=== PATIENT | male | born 1965 | race Two or more races ===

== ENCOUNTER 2018-06-02 11:55 | Inpatient (IN) | payer OTHER ==
[~2018-06-02] VITALS: Ht 175.3 cm; Wt 78.4 kg
[2018-06-02] VITALS (11 sets, daily range): BP systolic 90–129; BP diastolic 59–71
[2018-06-02] MEDS ORDERED: PANTOPRAZOLE 40 MG/10 ML VIAL IV STA (13:04)
[2018-06-02 14:44] LABS: Basophils # (auto) 0 uL; Eosinophils # (auto) 0 uL; Eosinophils % (auto) 0.1 % (0.0-7.0); Lymphocytes # (auto) 0.3 uL; Monocytes # (auto) 0.5 uL
[2018-06-02 14:46] LABS: Basophils % (auto) 0.2 % (0.0-2.0); Hematocrit 20.7 % (41.0-53.0); Mean Corpuscular Hemoglobin 34.2 pg (28.0-32.0); Mean Corpuscular Hgb Conc. 33.5 g/dL (32.0-36.0); Mean Corpuscular Volume 102.1 fL (80.0-100.0); Monocytes % (auto) 8.7 % (0.0-12.0); Neutrophils # (auto) 4.9 uL; Platelet Count (auto) 162 10^3/uL (140-450); Red Blood Cells 2.03 10^6/uL (4.5-5.90); White Blood Cell 5.7 10^3/uL (4.4-10.8)
[2018-06-02 14:49] LABS: Red Cell Distribution Width 22.2 % (11.8-14.3)
[2018-06-02 14:56] LABS: INR 1.18 (0.9-1.15); Partial Thromboplastin Time 26.1 sec (23.78-33.04); Prothrombin Time 12.5 sec (9.27-12.13)
[2018-06-02 14:58] LABS: Hemoglobin 6.9 g/dL (13.5-17.5)
[2018-06-02 15:11] LABS: Alanine Aminotransferase 25 U/L (16-61); Albumin 1.6 g/dL (3.4-5.0); Anion Gap 11 (5-15); Aspartate Aminotransferase 51 U/L (15-37); BUN/Creatinine Ratio 19.4; Blood Alcohol < 3.0 mg/dL (0-5); Blood Urea Nitrogen 14 mg/dL (7-18); Calcium 6.5 mg/dL (8.5-10.1); Carbon Dioxide 29 mmol/L (21-32); Chloride 86 mmol/L (98-107); GFR African American 148 mL/min; GFR Non-African American 122 mL/min; Glucose 128 mg/dL (74-106); Sodium 126 mmol/L (136-145)
[2018-06-02 15:16] LABS: Alkaline Phosphatase 282 U/L (45-117); Bilirubin, Total 2.6 mg/dL (0.2-1.0); Total Protein 4.3 g/dL (6.4-8.2)
[2018-06-02 15:17] LABS: Potassium 2.3 mmol/L (3.5-5.1)
[2018-06-02] MEDS ORDERED: POTASSIUM CHL 20MEQ/100ML 100 ML IV ONE (15:30)
[2018-06-02] MEDS ORDERED: PROCHLORPERAZINE EDISYLATE 5 MG/ML 2ML VIAL IV PRN (16:45)
[2018-06-02] MEDS ORDERED: DEXTROSE (50%) 50ML SYRG IV PRN (16:45)
[2018-06-02] MEDS: SODIUM CHLORIDE 0.9% 1,000 ML IV SCH (16:51)
[2018-06-02] MEDS ORDERED: TEMAZEPAM 15 MG CAP PO PRN (17:00)
[2018-06-02] MEDS ORDERED: MORPHINE SULF INJ 2 MG/ML SYRINGE 1ML IV PRN (17:00)
[2018-06-02] MEDS ORDERED: HYDROcodone-ACET 5/325MG TAB PO PRN (17:00)
[2018-06-02] MEDS ORDERED: DOCUSATE SOD 100 MG CAP PO PRN (17:00)
[2018-06-02] MEDS ORDERED: ACETAMINOPHEN 325 MG TAB PO PRN (17:00)
[2018-06-02] MEDS ORDERED: NITROGLYCERIN 0.4 MG SL TAB SL PRN (17:00)
[2018-06-02] MEDS ORDERED: VANCOMYCIN PER PHARMACY 0 MG IV SCH (17:15)
[2018-06-02] MEDS ORDERED: SODIUM CHLORIDE 0.9% 2,000 ML IV ONE (17:15)
[2018-06-02] MEDS ORDERED: cefTRIAXone 1GM/10ml IVPUSH 10 ML IV ONE (17:15)
[2018-06-02] MEDS: InsuLIN REG 1unit/0.01ml Soln (100units/ml) SC SCH ×2 (17:51→22:00)
[2018-06-02] MEDS: ACCU-CHEK COMFORT CURVE STRIP VI SCH ×2 (17:52→22:00)
[2018-06-02] MEDS: SPIRONOLACTONE 25 MG TAB PO SCH (18:24)
[2018-06-02] MEDS: FUROSEMIDE 40 MG TAB PO SCH (18:24)
[2018-06-02] MEDS: VANCOMYCIN 1GM/250ML 250 ML IV SCH (21:00)
[2018-06-02] MEDS: MORPHINE SULF 15mg ER tab PO SCH (23:00)
[2018-06-02] MEDS: FAMOTIDINE 20 MG TAB PO SCH (23:00)
[2018-06-02] MEDS: POTASSIUM CHL 10 Meq TABLET PO SCH (23:00)
[2018-06-03 02:14] LABS: Hematocrit 26.9 % (41.0-53.0); Hemoglobin 9.1 g/dL (13.5-17.5)
[2018-06-03 02:33] LABS: BUN/Creatinine Ratio 18.6; Calcium 6.8 mg/dL (8.5-10.1)
[2018-06-03] MEDS: POTASSIUM CHL 20MEQ/100ML 100 ML IV SCH ×2 (03:00→08:29)
[2018-06-03] MEDS: SODIUM CHLORIDE 0.9% 1,000 ML IV SCH ×3 (03:00→14:35)
[2018-06-03] MEDS ORDERED: POTASSIUM CHL 20 Meq TABLET PO ONE (03:00)
[2018-06-03] MEDS: ONDANSETRON HCL 4 MG/2 ML VIAL IV PRN (03:41)
[2018-06-03] MEDS: MORPHINE SULF INJ 2 MG/ML SYRINGE 1ML IV PRN (04:00)
[2018-06-03 08:01] LABS: Basophils # (auto) 0 uL; Basophils % (auto) 0.3 % (0.0-2.0); Eosinophils # (auto) 0.1 uL; Eosinophils % (auto) 1.6 % (0.0-7.0); Hematocrit 24.3 % (41.0-53.0); Hemoglobin 8.6 g/dL (13.5-17.5); Lymphocytes # (auto) 0.2 uL; Lymphocytes % (auto) 6.9 % (10.0-50.0); Mean Corpuscular Hemoglobin 33.5 pg (28.0-32.0); Mean Corpuscular Hgb Conc. 35.5 g/dL (32.0-36.0); Mean Corpuscular Volume 94.3 fL (80.0-100.0); Monocytes # (auto) 0.4 uL; Monocytes % (auto) 12.1 % (0.0-12.0); Neutrophils # (auto) 2.5 uL; Neutrophils % (auto) 79.1 % (37.0-80.0); Platelet Count (auto) 115 10^3/uL (140-450); Red Blood Cells 2.58 10^6/uL (4.5-5.90); Red Cell Distribution Width 18.9 % (11.8-14.3); White Blood Cell 3.2 10^3/uL (4.4-10.8)
[2018-06-03 08:07] LABS: Albumin 1.5 g/dL (3.4-5.0); BUN/Creatinine Ratio 19.7; Calcium 6.7 mg/dL (8.5-10.1)
[2018-06-03 08:10] LABS: Bilirubin, Total 5.7 mg/dL (0.2-1.0)
[2018-06-03] MEDS: ACCU-CHEK COMFORT CURVE STRIP VI SCH ×2 (08:14→11:38)
[2018-06-03] MEDS: InsuLIN REG 1unit/0.01ml Soln (100units/ml) SC SCH ×2 (08:14→11:30)
[2018-06-03 08:17] LABS: Potassium 2.4 mmol/L (3.5-5.1)
[2018-06-03] MEDS: SPIRONOLACTONE 25 MG TAB PO SCH ×3 (08:29→22:25)
[2018-06-03] MEDS: FUROSEMIDE 40 MG TAB PO SCH ×2 (08:30→18:48)
[2018-06-03] MEDS: cefTRIAXone 1GM/10ml IVPUSH 10 ML IV SCH (08:34)
[2018-06-03] MEDS: VANCOMYCIN 1GM/250ML 250 ML IV SCH (08:37)
[2018-06-03] MEDS: FAMOTIDINE 20 MG TAB PO SCH ×2 (11:17→22:24)
[2018-06-03] MEDS: MORPHINE SULF 15mg ER tab PO SCH ×2 (11:17→22:25)
[2018-06-03] MEDS: POTASSIUM CHL 10 Meq TABLET PO SCH ×2 (11:17→22:25)
[2018-06-03] MEDS: MULTIPLE VITAMIN TAB PO SCH (11:17)
[2018-06-03] MEDS: PANTOPRAZOLE 40 MG TAB PO SCH (11:18)
[2018-06-03] MEDS: METOLAZONE 5 MG TAB PO SCH (11:22)
[2018-06-03] MEDS ORDERED: POTASSIUM EFFERVESENT TAB 25 MEQ PO ONE (18:30)
[2018-06-04 00:01] LABS: BUN/Creatinine Ratio 9.7; Calcium 6.9 mg/dL (8.5-10.1)
[2018-06-04 00:04] LABS: Potassium 2.3 mmol/L (3.5-5.1)
[2018-06-04] MEDS: POTASSIUM CHL 20MEQ/100ML 100 ML IV SCH ×2 (00:30→02:30)
[2018-06-04] MEDS ORDERED: POTASSIUM CHL 20 Meq TABLET PO ONE ×3 (00:30→14:30)
[2018-06-04] MEDS: FUROSEMIDE 40 MG TAB PO SCH ×2 (06:00→18:15)
[2018-06-04] MEDS: SODIUM CHLORIDE 0.9% 1,000 ML IV SCH (06:49)
[2018-06-04 08:44] LABS: Basophils # (auto) 0 uL; Basophils % (auto) 0.1 % (0.0-2.0); Eosinophils # (auto) 0 uL; Eosinophils % (auto) 0.8 % (0.0-7.0); Hematocrit 26.3 % (41.0-53.0); Hemoglobin 9.3 g/dL (13.5-17.5); Lymphocytes # (auto) 0.3 uL; Lymphocytes % (auto) 5.4 % (10.0-50.0); Mean Corpuscular Hemoglobin 33.2 pg (28.0-32.0); Mean Corpuscular Hgb Conc. 35.3 g/dL (32.0-36.0); Monocytes # (auto) 0.7 uL; Monocytes % (auto) 12.6 % (0.0-12.0); Neutrophils # (auto) 4.2 uL; Neutrophils % (auto) 81.1 % (37.0-80.0); Nucleated Red Blood Cells % 0.1 %; Platelet Count (auto) 91 10^3/uL (140-450); Red Cell Distribution Width 19.8 % (11.8-14.3); White Blood Cell 5.2 10^3/uL (4.4-10.8)
[2018-06-04 09:14] LABS: Albumin 1.6 g/dL (3.4-5.0); BUN/Creatinine Ratio 10.7; Calcium 6.9 mg/dL (8.5-10.1); Magnesium 1.7 mg/dL (1.6-2.6); Total Protein 4.4 g/dL (6.4-8.2)
[2018-06-04 09:15] LABS: Potassium 2.4 mmol/L (3.5-5.1)
[2018-06-04] MEDS: MULTIPLE VITAMIN TAB PO SCH (09:38)
[2018-06-04] MEDS: FAMOTIDINE 20 MG TAB PO SCH (09:38)
[2018-06-04] MEDS: METOLAZONE 5 MG TAB PO SCH (09:38)
[2018-06-04] MEDS: MORPHINE SULF 15mg ER tab PO SCH ×2 (09:39→22:13)
[2018-06-04] MEDS: PANTOPRAZOLE 40 MG TAB PO SCH (09:39)
[2018-06-04] MEDS: POTASSIUM CHL 10 Meq TABLET PO SCH ×2 (09:39→22:12)
[2018-06-04] MEDS: cefTRIAXone 1GM/10ml IVPUSH 10 ML IV SCH (09:41)
[2018-06-04 10:46] LABS: Urine Bacteria NONE SEEN /hpf (None Seen); Urine Blood Negative /uL (Negative); Urine Specific Gravity 1.005 (1.001-1.035); Urine WBC <1 /hpf (0 - 3)
[2018-06-04] MEDS ORDERED: FURO40TA4 PO (10:52)
[2018-06-04] MEDS ORDERED: POTA1TAB61 PO (10:52)
[2018-06-04] MEDS ORDERED: PANT40TA2 PO (10:52)
[2018-06-04] MEDS ORDERED: ACET250T3 PO (10:52)
[2018-06-04] MEDS ORDERED: HYDR-4683 PO (10:52)
[2018-06-04] MEDS ORDERED: SPIR25TA88 PO (10:52)
[2018-06-04] MEDS ORDERED: PRO10T PO (10:52)
[2018-06-04] MEDS ORDERED: METO5TAB56 PO (10:52)
[2018-06-04] MEDS ORDERED: MORP-109 PO (10:52)
[2018-06-04] MEDS ORDERED: MAGNESIUM SULFATE 1GM/100ML 100 ML IV ONE (12:30)
[2018-06-04 16:42] VITALS: BP 110/69
[2018-06-04 16:52] VITALS: BP 122/77
[2018-06-04] MEDS: SPIRONOLACTONE 25 MG TAB PO SCH (18:15)
[2018-06-04 22:00] VITALS: BP 95/67
[2018-06-05] VITALS (7 sets, daily range): BP systolic 94–104; BP diastolic 62–67
[2018-06-05 06:20] LABS: Basophils # (auto) 0 uL; Basophils % (auto) 0.3 % (0.0-2.0); Eosinophils # (auto) 0.1 uL; Eosinophils % (auto) 1.1 % (0.0-7.0); Hematocrit 25.6 % (41.0-53.0); Hemoglobin 9.1 g/dL (13.5-17.5); Lymphocytes # (auto) 0.2 uL; Lymphocytes % (auto) 4.4 % (10.0-50.0); Mean Corpuscular Hemoglobin 33.9 pg (28.0-32.0); Mean Corpuscular Hgb Conc. 35.5 g/dL (32.0-36.0); Mean Corpuscular Volume 95.5 fL (80.0-100.0); Monocytes # (auto) 0.6 uL; Monocytes % (auto) 12.2 % (0.0-12.0); Neutrophils # (auto) 4.3 uL; Nucleated Red Blood Cells % 0.1 %; Platelet Count (auto) 95 10^3/uL (140-450); Red Blood Cells 2.68 10^6/uL (4.5-5.90); Red Cell Distribution Width 18.6 % (11.8-14.3); White Blood Cell 5.3 10^3/uL (4.4-10.8)
[2018-06-05 06:42] LABS: Albumin 1.6 g/dL (3.4-5.0); Calcium 7.3 mg/dL (8.5-10.1); Magnesium 1.8 mg/dL (1.6-2.6)
[2018-06-05 06:45] LABS: Bilirubin, Total 9.5 mg/dL (0.2-1.0); Total Protein 4.4 g/dL (6.4-8.2)
[2018-06-05 06:49] LABS: Potassium 2.6 mmol/L (3.5-5.1)
[2018-06-05] MEDS: FUROSEMIDE 40 MG TAB PO SCH (07:15)
[2018-06-05] MEDS ORDERED: POTASSIUM CHL 20 Meq TABLET PO ONE ×2 (07:30→13:45)
[2018-06-05] MEDS: cefTRIAXone 1GM/10ml IVPUSH 10 ML IV SCH (08:45)
[2018-06-05] MEDS: MORPHINE SULF 15mg ER tab PO SCH ×2 (08:47→23:12)
[2018-06-05] MEDS: MULTIPLE VITAMIN TAB PO SCH (08:47)
[2018-06-05] MEDS: SPIRONOLACTONE 25 MG TAB PO SCH ×2 (08:50→17:58)
[2018-06-05] MEDS: METOLAZONE 5 MG TAB PO SCH (08:50)
[2018-06-05] MEDS: PANTOPRAZOLE 40 MG TAB PO SCH (08:57)
[2018-06-05] MEDS: POTASSIUM CHL 10 Meq TABLET PO SCH ×2 (08:59→23:12)
[2018-06-05] MEDS ORDERED: MAGNESIUM SULFATE 1GM/100ML 100 ML IV ONE (11:45)
[2018-06-05] MEDS: Ensure HIGH Protein Chocolate 8oz Bottle PO SCH ×2 (13:03→18:01)
[2018-06-05] MEDS: MORPHINE SULF INJ 2 MG/ML SYRINGE 1ML IV PRN (23:13)
[2018-06-06] VITALS (8 sets, daily range): BP systolic 91–118; BP diastolic 59–69
[2018-06-06 06:10] LABS: Hematocrit 20.5 % (41.0-53.0)
[2018-06-06 06:12] LABS: Hemoglobin 7.3 g/dL (13.5-17.5)
[2018-06-06 06:29] LABS: Bilirubin, Direct 5.8 mg/dL (0-0.2); Bilirubin, Total 6.7 mg/dL (0.2-1.0); Magnesium 1.8 mg/dL (1.6-2.6); Potassium 3.3 mmol/L (3.5-5.1)
[2018-06-06] MEDS: MORPHINE SULF INJ 2 MG/ML SYRINGE 1ML IV PRN (06:48)
[2018-06-06] MEDS: SPIRONOLACTONE 25 MG TAB PO SCH ×2 (06:48→18:00)
[2018-06-06] MEDS: ONDANSETRON HCL 4 MG/2 ML VIAL IV PRN ×2 (06:49→13:28)
[2018-06-06] MEDS ORDERED: FUROSEMIDE 40 MG TAB PO SCH (10:00)
[2018-06-06 10:28] LABS: Hemoglobin 7.2 g/dL (13.5-17.5)
[2018-06-06 10:31] LABS: Hematocrit 20.7 % (41.0-53.0)
[2018-06-06] MEDS: POTASSIUM CHL 10 Meq TABLET PO SCH (10:37)
[2018-06-06] MEDS: MULTIPLE VITAMIN TAB PO SCH (10:37)
[2018-06-06] MEDS: PANTOPRAZOLE 40 MG TAB PO SCH (10:37)
[2018-06-06] MEDS: MORPHINE SULF 15mg ER tab PO SCH (10:37)
[2018-06-06] MEDS: Ensure HIGH Protein Chocolate 8oz Bottle PO SCH ×3 (10:39→18:00)
[2018-06-06] MEDS: METOLAZONE 5 MG TAB PO SCH (10:40)
[2018-06-06] MEDS ORDERED: MAGNESIUM SULFATE 1GM/100ML 100 ML IV ONE (11:15)
[2018-06-06] MEDS ORDERED: POTASSIUM CHL 20 Meq TABLET PO ONE ×2 (11:15→15:15)
[2018-06-06] MEDS ORDERED: POTA1TAB61 PO (11:17)
[2018-06-06] MEDS ORDERED: POTA20TA53 PO (11:18)
[2018-06-06] MEDS ORDERED: FER325T PO (11:31)
[2018-06-06] MEDS ORDERED: MORPHINE SULFATE 4 MG/ML SYR/VIAL IV PRN (16:45)
== END 2018-06-06 19:05 | disposition home or self-care (01) | DRG 279 ==
LOC: ER 11:55 → OVERFLOW 11:56 → EDBD 11:56 → TELE-WESTW 06-04 13:20
PROVIDERS: ADMIT Internal Medicine; ATTEND Internal Medicine
PROC: 0W9G3ZZ Drainage of Peritoneal Cavity, Percutaneous Approach (ICD-10-PCS; principal; 2018-06-03)
PROC: 30233N1 Transfusion of Nonautologous Red Blood Cells into Peripheral Vein, Percutaneous Approach (ICD-10-PCS; 2018-06-06)
DX: K72.90 Hepatic failure, unspecified without coma (principal); R65.11 Systemic inflammatory response syndrome (SIRS) of non-infectious origin with acute organ dysfunction; E43 Unspecified severe protein-calorie malnutrition; G92 Toxic encephalopathy; R18.8 Other ascites; C24.0 Malignant neoplasm of extrahepatic bile duct; D68.9 Coagulation defect, unspecified; E87.8 Other disorders of electrolyte and fluid balance, not elsewhere classified; K74.60 Unspecified cirrhosis of liver; D62 Acute posthemorrhagic anemia; E83.51 Hypocalcemia; E87.1 Hypo-osmolality and hyponatremia; D63.8 Anemia in other chronic diseases classified elsewhere; E86.0 Dehydration; E87.6 Hypokalemia; K62.5 Hemorrhage of anus and rectum; Z92.21 Personal history of antineoplastic chemotherapy; Z92.3 Personal history of irradiation; Z90.49 Acquired absence of other specified parts of digestive tract; Z85.09 Personal history of malignant neoplasm of other digestive organs; Z85.05 Personal history of malignant neoplasm of liver; Z82.49 Family history of ischemic heart disease and other diseases of the circulatory system; Z68.25 Body mass index [BMI] 25.0-25.9, adult
CPT/HCPCS: 10022; 36415; 49083; 70450; 76705; 76942; 80048; 80053; 80320; 81001; 82140; 82150; 82247; 82248; 82962; 83036; 83605; 83690; 83735; 84132; 84443; 84484; 85014; 85018; 85025; 85610; 85730; 86850; 86900; 86901; 86920; 87040; 93005; 93306; 96361; 96374; 99291; C9113; G0378; J0696; J2405; J3480